=== PATIENT | male | born 1945 | race Caucasian/White ===

== ENCOUNTER 2016-08-15 05:14 | Day surgery (SDC) | payer OTHER, BC ==
[~2016-08-15] VITALS: Ht 177.8 cm; Wt 97.1 kg
--- NOTE | ~2016-08-15 | O ---
[facility] [place] [address] OPERATIVE REPORT Name: NIGHAT THOMAS JR Room #: 150-11 [facility]..#: [id number] Admission: 08/15/16 Attend Phys: Shady Jacobs MD Discharge: Date of : 43 Report #: [id number] THIS REPORT FOR: //name// CC: KAYLA DIAS Deny Kiatuan Jacobs DATE OF SERVICE: 08/15/2016 LASER PRINT OPERATOR: None. PREOPERATIVE DIAGNOSIS: Bilateral upper lid ptosis with superior visual field defects both eyes. POSTOPERATIVE DIAGNOSIS: Bilateral upper lid ptosis with superior visual field defects both eyes. OPERATION PERFORMED: Bilateral upper lid functional ptosis repair. LASER PRINT OPERATOR: None. ANESTHESIA: Local with IV sedation. COMPLICATIONS: None. INDICATIONS FOR PROCEDURE: This patient has bilateral upper lid ptosis with superior visual field loss both eyes. Visual field testing demonstrates dense superior visual defects. Retesting with the upper lid elevated shows an improvement in visual field loss of over 30% and in excess of 12 degrees. The current procedure is being undertaken in order to improve the patient's visual function. Informed consent was obtained to include but not limited to the risk of loss of vision, bleeding, infection, scarring, failure to improve the problem and need for further surgery, such as adjustment of lid height. DESCRIPTION OF PROCEDURE: The patient was taken to the operating room, where 2% Xylocaine with epinephrine mixed with equal parts of 0.75% Marcaine with Wydase was administered transcutaneously to each upper lid. The patient was then prepped and draped in the usual sterile fashion. An upper lid crease incision was then made bilaterally and the dissection was carried down until the orbital septum was identified. The orbital septum was then cleared and the preaponeurotic fat identified. The levator aponeurosis was then disinserted from the anterior surface of the tarsal plate and dissected [address] [address] OPERATIVE REPORT Name: NIGHAT THOMAS Room #: 150-11 [facility]#: [id number] Admission: 08/15/16 Attend Phys: Shady Jacobs MD Discharge: Date of : 43 Report #: [id number] free in the avascular Reaves's muscle plane. The aponeurosis was then advanced and reattached to the anterior surface of the tarsal plate with interrupted mattress 6-0 Novafil sutures on each side, adjusting for height and contour. The redundant aponeurosis was then amputated. The incision was then closed with multiple interrupted 6-0 chromic sutures that were used to recreate an upper lid crease. The skin was closed with a running 6-0 plain gut suture. The wound was then cleaned and dressed with ophthalmic antibiotic ointment followed by a Telfa pad. The patient was transported to the recovery area, having tolerated the procedure well with no anesthesia or operative complications being noted. By: [id number] MD ro Flores
[~2016-08-15 05:14] MED LIST: ALDACTONE25 MG PO; ASPIR 8181 M1 PO; ATORVASTATIN CA40 MG PO; LASIX 40 MG TAB40 M2 PO; LISINOPRIL5 MG PO; METOPROLOL SUCC50 MG PO; NAPROSYN500 MG PO; SIMBRINZA 1%-0.28 ML OP; XALATAN2.5 ML OPHTHALMIC
[2016-08-15 10:35] VITALS: BP 1221/88
== END 2016-08-15 09:50 | disposition home or self-care (01) ==
LOC: OR 05:14 → TBA 05:14 → OR 08:34
DX: H02.403 Unspecified ptosis of bilateral eyelids (principal); H53.462 Homonymous bilateral field defects, left side; H53.461 Homonymous bilateral field defects, right side; I10 Essential (primary) hypertension; E78.00 Pure hypercholesterolemia, unspecified; I25.2 Old myocardial infarction; Z87.891 Personal history of nicotine dependence; K21.9 Gastro-esophageal reflux disease without esophagitis; Z98.41 Cataract extraction status, right eye; Z98.42 Cataract extraction status, left eye; Z95.5 Presence of coronary angioplasty implant and graft; Z95.1 Presence of aortocoronary bypass graft; Z98.890 Other specified postprocedural states
CPT/HCPCS: 50010; 50101; 50386; 50398; 51606; 51636; 56528; 56531

== ENCOUNTER 2017-06-23 05:15 | Day surgery (SDC) | payer OTHER, BC ==
[~2017-06-23] VITALS: Ht 177.8 cm; Wt 98.4 kg
--- NOTE | ~2017-06-23 | O ---
[facility] [place] [address] OPERATIVE REPORT Name: NIGHAT THOMAS Room #: [facility]..#: [id number] Admission: 06/23/17 Attend Phys: Shady Jacobs MD Discharge: 06/23/17 Date of : 43 Report #: [id number] THIS REPORT FOR: //name// CC: KAYLA Jacobs DATE OF SERVICE: 06/23/2017 FORMULA ROOM WORKER: None. PREOPERATIVE DIAGNOSIS: Unilateral left upper lid ptosis. POSTOPERATIVE DIAGNOSIS: Unilateral left upper lid ptosis. OPERATION PERFORMED: Unilateral left upper lid ptosis repair. ANESTHESIA: Local anesthesia with IV sedation. COMPLICATIONS: None. INDICATIONS FOR SURGERY: This patient has left upper lid ptosis with superior visual field loss. Visual field testing demonstrates dense superior visual defects. Retesting with the upper lid elevated shows an improvement in visual field loss of over 30% and in excess of 12 degrees. The current procedure is undertaken in order to improve the patient's visual function. Informed consent was obtained to include but not limited to the potential risks for bleeding, scarring, infection, loss of vision, failure to improve the problem, need for further surgery and need for adjustment of lid height. DESCRIPTION OF PROCEDURE: The patient was taken to the operating room, where a left upper lid crease was drawn with a skin marking pen. The incision was then made with Mary Alice scissors and dissected down to the orbital septum. Hemostasis was achieved with a monopolar cautery as it was throughout the case. The orbital septum was then entered and the preaponeurotic fat identified. The levator aponeurosis was then disinserted from the anterior surface of the tarsal plate and dissected free in the avascular Reaves's muscle plane. The aponeurosis was then advanced onto the anterior surface of the tarsal plate and reattached with mattress double-arm 6-0 Novafil sutures, adjusting for height and contour. The redundant aponeurosis was then amputated. The upper lid crease was then reformed with interrupted 6-0 chromic sutures. The skin was closed with interrupted 6-0 plain gut suture. The wound was then cleaned and dressed with ophthalmic antibiotic ointment. [address] [address] OPERATIVE REPORT Name: MARTHANIGHAT E Room #: [facility].#: [id number] Admission: 06/23/17 Attend Phys: Shady Jacobs MD Discharge: 06/23/17 Date of : 43 Report #: [id number] The patient was then transported to the recovery area, having tolerated the procedure well with no anesthesia or operative complications being noted. <ELECTRONICALLY SIGNED> By: Shady Jacobs MD 06/30/17 0620 [id number] Shady Jacobs MD /nt
[~2017-06-23 05:15] MED LIST changes: +METFORMIN HCL500 MG PO; -SIMBRINZA 1%-0.28 ML OP; +SIMBRINZA 1%-0.28 ML OPHTHALMIC
[2017-06-23 10:48] VITALS: BP 125/70
== END 2017-06-23 18:18 | disposition home or self-care (01) ==
LOC: OR 05:15 → TBA 05:15 → OR 14:25
DX: H02.402 Unspecified ptosis of left eyelid (principal); Z87.891 Personal history of nicotine dependence; E78.00 Pure hypercholesterolemia, unspecified; I21.3 ST elevation (STEMI) myocardial infarction of unspecified site; Z98.890 Other specified postprocedural states; I50.9 Heart failure, unspecified; I25.10 Atherosclerotic heart disease of native coronary artery without angina pectoris; Z95.1 Presence of aortocoronary bypass graft; E11.9 Type 2 diabetes mellitus without complications
CPT/HCPCS: 50010; 50101; 50386; 50398; 51636; 56528; 56531; 62110; 62850; 70005